=== PATIENT | male | born 1965 | race Caucasian/White ===

== ENCOUNTER 2017-07-26 01:35 | Emergency (ER) | payer OTHER ==
[~2017-07-26] VITALS: Ht 177.8 cm; Wt 90.7 kg
[~2017-07-26 01:35] MED LIST: ALBU90OI61 INH; BENZ100A PO; CEPH500 PO; GABA300 PO; MUPI2TO TOP; Naproxen250 MG PO; Norco 5-325 Ta1 EACH PO; OXYACE5T PO
[2017-07-26] MEDS ORDERED: ERYT1OIN BOTHEYES (02:43)
[2017-07-26] MEDS ORDERED: Percocet 5-3251 EACH PO (02:43)
[2017-07-26] MEDS ORDERED: Lacri-Lube S.O3.5 GM TOP (02:43)
== END 2017-07-26 03:05 | disposition home or self-care (01) ==
LOC: ER 01:35
DX: H16.9 Unspecified keratitis (principal); F41.9 Anxiety disorder, unspecified; F17.210 Nicotine dependence, cigarettes, uncomplicated; F32.9 Major depressive disorder, single episode, unspecified; Z79.899 Other long term (current) drug therapy
CPT/HCPCS: 99283

== ENCOUNTER 2017-12-16 20:14 | Emergency (ER) | payer SELFPAY ==
[~2017-12-16] VITALS: Ht 177.8 cm; Wt 86.2 kg
[~2017-12-16 20:14] MED LIST changes: +ERYT1OIN BOTHEYES; +Lacri-Lube S.O3.5 GM TOP; +Percocet 5-3251 EACH PO
[2017-12-16] MEDS ORDERED: GABA400 PO (20:44)
== END 2017-12-16 21:59 | disposition home or self-care (01) ==
LOC: ER 20:14
DX: I82.4Z1 Acute embolism and thrombosis of unspecified deep veins of right distal lower extremity (principal); I83.891 Varicose veins of right lower extremity with other complications; F41.9 Anxiety disorder, unspecified; F32.9 Major depressive disorder, single episode, unspecified; F17.210 Nicotine dependence, cigarettes, uncomplicated; Z79.899 Other long term (current) drug therapy
CPT/HCPCS: 93971; 99283-25

== ENCOUNTER 2018-08-26 08:28 | Day surgery (SDC) | payer OTHER ==
[~2018-08-26] VITALS: Ht 177.8 cm; Wt 92.5 kg
[~2018-08-26 08:28] MED LIST changes: +GABA400 PO
--- NOTE | 2018-08-26 08:45 | NUR ---
Ambulatory in Day SurgeryPatient states colon prep results clear. History, Chart, Medications and Allergies reviewed before start of procedure.Lungs clear T/O to Auscultation. Patient confirms NPO status and agrees with scheduled surgery. Patient States Post-Procedure ride home has been arranged.
--- NOTE | 2018-08-26 09:19 | NUR ---
08/26/18 0919 [employer] PATIENT DETERMINED TO BE ASA APPROPRIATE FOR PROPOFOL SEDATION PRIOR TO START OF PROCEDURE BY . 3-LEAD EKG REVIEWED WITH PHYSICIAN PRIOR TO START OF PROCEDURE.PATIENT CONFIRMS NPO STATUS AND AGREES WITH SCHEDULED PROCEDURE.History, Chart, Medications and Allergies reviewed before start of procedure.MONITOR INTACT WITH CONTINUOUS PULSE OXIMETRY AND INTERMITTENT BP.O2 VIA N/C INTACT THROUGHOUT SEDATION/PROCEDURE.
--- NOTE | 2018-08-26 10:10 | NUR ---
Discharge instructions reviewed with patient. Patient verbalizes understanding. Copy given to patient to take home.
--- NOTE | 2018-08-26 10:18 | NUR ---
Discharged via wheelchair to private car for ride home.
== END 2018-08-26 10:19 | disposition home or self-care (01) ==
LOC: ORSCMMR 08:28 → ORD 09:30 → ORSCMMR 10:19
PROVIDERS: Internal Medicine Gastroenterology
PROC: 0DBM8ZX Excision of Descending Colon, Via Natural or Artificial Opening Endoscopic, Diagnostic (ICD-10-PCS; principal; 2018-08-26 09:30)
PROC: 0DBH8ZX Excision of Cecum, Via Natural or Artificial Opening Endoscopic, Diagnostic (ICD-10-PCS; principal; 2018-08-26 09:30)
DX: Z12.11 Encounter for screening for malignant neoplasm of colon (principal); K63.5 Polyp of colon; G25.81 Restless legs syndrome; F17.210 Nicotine dependence, cigarettes, uncomplicated; Z79.899 Other long term (current) drug therapy
CPT/HCPCS: J2704; J7120

== ENCOUNTER 2024-04-04 03:06 | Emergency (ER) | payer OTHER ==
[~2024-04-04] VITALS: Ht 172.7 cm; Wt 115.7 kg
[~2024-04-04 03:06] MED LIST changes: +Chantix1 MG PO; +GABA400; +Vibramycin100 MG PO; +WARF5 PO
[2024-04-04 03:10] VITALS: BP 183/122
[2024-04-04] MEDS ORDERED: Amoxicillin/Clavulanate K 875 MG Tab PO ONE (03:30)
[2024-04-04] MEDS ORDERED: Diphth,Pertuss(Acell),Tet Vac 0.5 ML VIAL IM ONE (03:30)
[2024-04-04] MEDS ORDERED: AMOCLA875 PO (03:30)
== END 2024-04-04 03:39 | disposition home or self-care (01) ==
LOC: ER 03:06
DX: S41.152A Open bite of left upper arm, initial encounter (principal); F17.210 Nicotine dependence, cigarettes, uncomplicated; W54.0XXA Bitten by dog, initial encounter; Z79.01 Long term (current) use of anticoagulants; Z79.899 Other long term (current) drug therapy
CPT/HCPCS: 90471; 90715; 99283-25; A9270